=== PATIENT | female | born 1960 | race Caucasian/White ===

== ENCOUNTER 2018-01-16 19:11 | Emergency (ER) | payer SELFPAY ==
[~2018-01-16] VITALS: Ht 167.6 cm; Wt 71.6 kg
[2018-01-16 19:21] VITALS: BP 159/78; PULSE 84; RESP 16; TEMP 98.2; O2SAT 98
[2018-01-16 19:42] LABS: BILIRUBIN, URINE NEG (NEG); BLOOD, URINE TRACE (NEG); GLUCOSE,URINE NEG (NEG); KETONE, URINE NEG (NEG); NITRITE,URINE NEG (NEG); PH, URINE 5.5 (5.0-8.5); URINE COLOR YELLOW (YELLW/STRAW); URINE LEUKOCYTE ESTERASE MOD (NEG)
[2018-01-16 19:47] LABS: RBC, URINE 0-3 /hpf (0-3); SQUAMOUS EPITHELIAL CELL URINE 0-5 /hpf (0-5); WBC, URINE INNUM /hpf (0-5)
[2018-01-16 19:48] LABS: BACTERIA, URINE OCC /hpf
--- NOTE | 2018-01-16 19:48 | PD ---
HPI Chief Complaint: Flank/Kidney Pain Time Seen by Provider: 19:42 Travel History International Travel<30 days: No Contact w/Intl Traveler<30days: No Traveled to known affect area: No History of Present Illness HPI pt is a 57 y.o female who presents to the ED with a CC of abdominal pain after urination. Pt states that for the past 3 days she has been getting pain in her suprapubic and RLQ region only after she is done urinating. Pain is only present after urination, does not radiate and is not associated with fever, vomiting, diarrhea, dysuria, or hematuria. She also reports whitish-red discharge for the past day. She states that 1 month ago she had unprotected intercourse with a new partner. PFSH Past Medical History Medical History: Denies Significant Hx Diminished Hearing: No Tetanus Vaccination: Unknown Influenza Vaccination: No ?: Not Menopausal: Yes Past Surgical History Surgical History: No Previous Surgery Social History Alcohol Use: No Tobacco Use: No Substance Use: No Allergies-Medications (Allergen,Severity, Reaction): Coded Allergies: No Known Allergies (Unverified , 01/16/18) Reported Meds & Prescriptions Reported Meds & Active Scripts Active Keflex (Cephalexin) 500 Mg Cap 500 Mg PO Q6H 7 Days Review of Systems Except as stated in HPI: all other systems reviewed are Neg Physical Exam Narrative GENERAL: Well-developed well-nourished no obvious distress SKIN: Warm and dry. HEAD: Atraumatic. Normocephalic. EYES: Pupils equal and round. No scleral icterus. No injection or drainage. ENT: No nasal bleeding or discharge. Mucous membranes pink and moist. NECK: Trachea midline. No JVD. CARDIOVASCULAR: Regular rate and rhythm. RESPIRATORY: No accessory muscle use. Clear to auscultation. Breath sounds equal bilaterally. GASTROINTESTINAL: Abdomen soft, non-tender, nondistended. Hepatic and splenic margins not palpable. No CVA tenderness. No rebound no percussive tenderness peer Genitourinary: Exam performed with female nurse fusion operator present all times, no cervical motion tenderness, there is some discharge in the vaginal vault smoking white in color, no bimanual tenderness, no vaginal lesions seen. MUSCULOSKELETAL: Extremities without clubbing, cyanosis, or edema. No obvious deformities. NEUROLOGICAL: Awake and alert. No obvious cranial nerve deficits. Motor grossly within normal limits. Five out of 5 muscle strength in the arms and legs. Normal speech. PSYCHIATRIC: Appropriate mood and affect; insight and judgment normal. Data Data Last Documented VS Vital Signs Date Time Temp Pulse Resp B/P (MAP) Pulse Ox O2 Delivery O2 Flow Rate FiO2 01/16/18 21:54 84 18 98 01/16/18 21:37 Room Air 01/16/18 19:21 98.2 Orders Orders Urinalysis - C+S If Indicated (01/16/18 19:33) Gc And Chlamydia Pcr (01/16/18 19:47) Wet Prep Profile (01/16/18 19:47) Urine Culture (01/16/18 19:35) Ceftriaxone Inj (Rocephin Inj) (01/16/18 21:15) Azithromycin (Zithromax) (01/16/18 21:15) Ondansetron Odt (Zofran Odt) (01/16/18 21:15) Ed Discharge Order (01/16/18 21:08) Labs Laboratory Tests Test 01/16/18 19:35 01/16/18 20:30 Urine Color YELLOW Urine Turbidity CLOUDY Urine pH 5.5 Urine Specific [place] 1.025 Urine Protein NEG mg/dL Urine Glucose (UA) NEG mg/dL Urine Ketones NEG mg/dL Urine Occult Blood TRACE Urine Nitrite NEG Urine Bilirubin NEG Urine Urobilinogen 0.2 MG/DL Urine Leukocyte Esterase MOD Urine RBC 0-3 /hpf Urine WBC INNUM /hpf Urine Squamous Epithelial Cells 0-5 /hpf Urine Bacteria OCC /hpf Microscopic Urinalysis Comment CULTURE INDICATED Clue Cells (Wet Prep) NONE SEEN Vaginal Trichomonas (Wet Prep) NONE SEEN Vaginal Yeast (Wet Prep) NONE SEEN MDM Medical Decision Making Medical Screen Exam Complete: Yes Emergency Medical Condition: Yes Differential Diagnosis UTI, Cystitis, STD, PID, urolithiasis. Narrative Course Patient room to the emergency department, abdomen very benign, UA does show a white blood cell counts but no nitrates. There were 0-5 squamous epithelial cells noted, certainly this could be vaginal, contamination, the patient has had a new sexual partner recently, discussed empiric therapy for STDs and she is agreeable. She is unsure as to her sexual partner status. Discussed that she needs follow-up with the health department primary care physician or HEARING SCREEN COORDINATOR for testing for HIV hepatitis and syphilis, discussed following up her STD testing here, discussed will also cover for UTI. There is no indication further workup of this patient who appears well has benign abdomen. She stable for discharge. Diagnosis Primary Impression: UTI (urinary tract infection) Additional Impression: Possible exposure to STD Additional Instructions: Follow up with your regular physician, HEARING SCREEN COORDINATOR or health department for further workup for possible HIV, Hepatitis or syphilis exposure. Med/Other Pt SpecificInfo: Prescription(s) given Scripts Cephalexin (Keflex) 500 Mg Cap 500 MG PO Q6H for Infection for 7 Days, #28 CAP 0 Refills Prov: Kt Fleming MD 01/16/18 Disposition: DISCHARGE HOME Condition: Stable Kt Fleming MD January 16, 2018 19:48
[2018-01-16] MEDS ORDERED: CEPH-460 PO (21:08)
[2018-01-16] MEDS ORDERED: cefTRIAXone 250 MG VIAL IM ONE (21:15)
[2018-01-16] MEDS ORDERED: ONDANSETRON ODT 4 MG TAB PO ONE (21:15)
[2018-01-16] MEDS ORDERED: AZITHROMYCIN 250 MG TAB PO ONE (21:15)
[2018-01-16 21:37] VITALS: BP 146/84; PULSE 84; RESP 18; O2SAT 97
== END 2018-01-16 21:55 | disposition home or self-care (01) ==
LOC: PHED 19:11
DX: N39.0 Urinary tract infection, site not specified (principal)
CPT/HCPCS: 81001; 87086; 87210; 87491; 87591; 96372; 99283; J0696; 87077; 87186